=== PATIENT | male | born 1995 | race Caucasian/White ===

== ENCOUNTER 2018-03-30 12:26 | Emergency (ER) | payer SELFPAY ==
[~2018-03-30] VITALS: Ht 177.8 cm; Wt 86.4 kg
[2018-03-30 12:34] VITALS: BP 141/97; PULSE 99; TEMP 98.8
== END 2018-03-30 13:03 | disposition home or self-care (01) ==
LOC: COL.ER 12:26
DX: M25.562 Pain in left knee (principal); Y93.67 Activity, basketball